=== PATIENT | male | born 1965 | race Caucasian/White ===

== ENCOUNTER 2022-05-13 09:28 | Emergency (ER) | payer MEDICAID, OTHER ==
[~2022-05-13] VITALS: Ht 190.5 cm; Wt 109.0 kg
[2022-05-13 09:32] VITALS: BP 170/120
[2022-05-13] MEDS ORDERED: OXYMETAZOLINE HCL NASAL SPRAY 15ML BOTHNSTRLS STA (10:22)
== END 2022-05-13 11:56 | disposition home or self-care (01) ==
LOC: ER 09:28
DX: R04.0 Epistaxis (principal); Z88.0 Allergy status to penicillin
CPT/HCPCS: 30901; 99284; Z7610